=== PATIENT | female | born 1975 | race Caucasian/White ===

== ENCOUNTER 2017-04-16 21:08 | Emergency (ER) | payer OTHER ==
[2017-04-16 21:29] VITALS: BP 118/63
--- NOTE | 2017-04-16 21:45 | UC ---
Skin Complaint HPI - HPI Summary HPI Summary: 41 YEAR old female with foot complaint. has blister like sore on left lateral foot, reports that she fell down in a doorway 03/25/17. no further trauma. -pt also requesting test, is on the pill but has not had period since 02/2017, no other urinary complaints. [ End ] - History of Current Complaint Chief Complaint: UCSkin Time Seen by Provider: 04/16/17 21:38 Stated Complaint: OPEN SORE ON THE LEFT FOOT Hx Obtained From: Patient Hx Last Menstrual Period: 03/05/17 on BCP Onset/Duration: Sudden Onset Timing: Constant - Allergy/Home Medications Allergies/Adverse Reactions: Allergies Allergy/AdvReac Type Severity Reaction Status Date / Time No Known Allergies Allergy Verified 04/16/17 21:29 Home Medications: Home Medications Micronor Bcp 1 tab DAILY 04/16/17 [History Confirmed 04/16/17] Review of Systems Constitutional: Negative Skin: Other - ulcer left foot Eyes: Negative ENT: Negative Respiratory: Negative Cardiovascular: Negative Gastrointestinal: Negative Genitourinary: Negative Motor: Negative Neurovascular: Negative Musculoskeletal: Negative Neurological: Negative Psychological: Negative All Other Systems Reviewed And Are Negative: Yes PMH/Surg Hx/FS Hx/Imm Hx Previously Healthy: Yes - Surgical History Surgical History: None - Family History Known Family History: Positive: None - Social History Lives: With Family Alcohol Use: Rare Substance Use Type: None Smoking Status (MU): Light Every Day Tobacco Smoker Type: Cigarettes Amount Used/How Often: 1/2 - 1 ppd Length of Time of Smoking/Using Tobacco: 15 yrs Have You Smoked in the Last Year: Yes Cessation Counseling: Patient Advised to Stop - Immunization History Most Recent Influenza Vaccination: none Physical Exam Triage Information Reviewed: Yes Appearance: Well-Appearing, No Pain Distress, Well-Nourished Vital Signs: Initial Vital Signs Temp 99.5 F 04/16/17 21:24 Pulse 75 04/16/17 21:24 Resp 16 04/16/17 21:24 BP 118/63 04/16/17 21:24 Pulse Ox 100 04/16/17 21:24 Vital Signs Reviewed: Yes Eye Exam: Normal ENT Exam: Normal Dental Exam: Normal Neck exam: Normal Neck: Positive: 1 Respiratory Exam: Normal Cardiovascular Exam: Normal Musculoskeletal Exam: Normal Neurological Exam: Normal Psychological Exam: Normal Skin Exam: Normal Skin: Positive: Other - left lateral foot with round macerated ulcer 1x1 cm and erythema surrounding it another 1cm, some purulent drainage in the center. no fluctuance. no streaking. rest of skin normal . Course/Dx - Course Course Of Treatment: discussed wound care, stop smoking, if redness spreads then go to ED. - Diagnoses Provider Diagnoses: cellulitis of the left foot Discharge - Discharge Plan Condition: Good Disposition: HOME Prescriptions: Cephalexin CAP* [Keflex 500 CAP*] 500 mg PO TID #30 cap Patient Education Materials: Cellulitis (ED) Referrals: Caitlin Bowman MD [Primary Care Provider] - 4 Days
== END 2017-04-16 22:08 | disposition home or self-care (01) ==
LOC: UCCORT 21:08
DX: L03.116 Cellulitis of left lower limb (principal); X58.XXXA Exposure to other specified factors, initial encounter; Z32.02 Encounter for pregnancy test, result negative; Z71.6 Tobacco abuse counseling
CPT/HCPCS: 84702; 99202; G0463

== ENCOUNTER 2017-05-19 12:02 | Emergency (ER) | payer OTHER ==
[2017-05-19] MEDS ORDERED: NS 0.9% 1000 ML* 1,000 ML IV ONE (12:52)
[2017-05-19] MEDS ORDERED: Ketorolac INJ* 30 MG/ML 1 ML VIAL IV PUSH ONE (12:52)
[2017-05-19] MEDS ORDERED: cefTRIAXone VIAL(*) 1,000 MG in NS 0.9% 50 ML* 50 ML IVPB ONE (12:53)
[2017-05-19] MEDS ORDERED: cefTRIAXone VIAL(*) 1,000 MG VIAL ONE (12:58)
--- NOTE | 2017-05-19 12:58 | UC ---
Abdominal Pain Female HPI - HPI Summary HPI Summary: Since yesterday she has had Left flank pain just below the ribs. No radiation down the leg. It hurts more to take a deep breath in and to move in certain positions like rolling over in bed last night. She has had urinary frequency for the past three days and pain at the end of urination. No prior kidney stone. Sexually active and monogamous. She also had chills last night and today. - History of Current Complaint Chief Complaint: UCGU Stated Complaint: URINARY COMPLAINT,BACK PAIN Time Seen by Provider: 05/19/17 12:40 Hx Obtained From: Patient Hx Last Menstrual Period: 05/05/17 Onset/Duration: Gradual Onset, Lasting Days Timing: Constant Severity Initially: Severe Severity Currently: Severe Location: Other - Discrete and left mid flank.. Radiates: No Character: Aching Aggravating Factor(s): Movement, Deep Breaths Alleviating Factor(s): Position Associated Signs and Symptoms: Positive: Back Pain, Urinary Symptoms. Negative : Diaphoresis, Fever - She has had chills., Cough, Chest Pain, Dizzy, Constipation, Blood in Stool, Vaginal Bleeding, Vaginal Discharge, Vomiting, Diarrhea Allergies/Adverse Reactions: Allergies Allergy/AdvReac Type Severity Reaction Status Date / Time No Known Allergies Allergy Verified 05/19/17 12:22 PMH/Surg Hx/FS Hx/Imm Hx Previously Healthy: Yes - Surgical History Surgical History: None - Family History Known Family History: Positive: None, Other - No hx of stones in the family. - Social History Lives: With Family Alcohol Use: None Substance Use Type: None Smoking Status (MU): Heavy Every Day Tobacco Smoker Type: Cigarettes Amount Used/How Often: 1/2 - 1 ppd Length of Time of Smoking/Using Tobacco: 15 yrs Have You Smoked in the Last Year: Yes - Immunization History Most Recent Influenza Vaccination: none Review of Systems Genitourinary: Dysuria, Frequency All Other Systems Reviewed And Are Negative: Yes Physical Exam Triage Information Reviewed: Yes Appearance: Well-Nourished, Pain Distress - She is guarding her back and she does not want move he back. Vital Signs: Initial Vital Signs Temp 97.6 F 05/19/17 12:22 Pulse 83 05/19/17 12:22 Resp 24 05/19/17 12:22 BP 152/99 05/19/17 12:22 Pulse Ox 99 05/19/17 12:22 Vital Signs Reviewed: Yes Eye Exam: Normal Eyes: Positive: Conjunctiva Clear ENT: Positive: Normal ENT inspection Neck: Positive: Supple, Nontender, No Lymphadenopathy Respiratory: Positive: Chest non-tender, Lungs clear, Normal breath sounds, No respiratory distress, No accessory muscle use. Negative: Respiratory distress, Decreased breath sounds, Accessory muscle use, Crackles, Rhonchi, Stridor Cardiovascular: Positive: RRR, No Murmur. Negative: Pulses Normal, Brisk Capillary Refill Abdomen Description: Positive: Nontender, No Organomegaly, Soft. Negative: Distended, Guarding Musculoskeletal: Positive: Strength Intact, ROM Intact, No Edema Neurological: Positive: Alert, Muscle Tone Normal. Negative: Fatigued Psychological: Positive: Normal Response To Family, Age Appropriate Behavior, Abnormal Response To Family Skin: Negative: rashes Diagnostics - Radiology No standard instances Xray Interpretation: No Acute Changes Radiology Interpretation Completed By: Radiologist Abd Pain Female Course/Dx - Course Course Of Treatment: She is feeling better after toradol. CT does not show urologic complications. The differential is still pyelonephritis given her chills and urinary symptoms. We will place her on keflex and she will stop it in two days if urine culture is neg. We will also place her on naproxen and flexaril. This could also be muscle strain as it is worse withi deep breaths. There is no midline percussion tenderness and it is higher up than lumbar spine. She has no radiation down the legs. She has no saddle anesthesia. She does agree that should she get more symtpoms down the legs or saddle anesthesia that she should get an MRI in the Ed. she agrees. She says she has had spine problems in the past and this does not feel like prior spine disc complications. - Differential Dx/Diagnosis Differential Diagnosis: Abdominal Aortic Aneurysm, Appendicitis, Bowel Obstruction, Constipation, Diverticulitis, Gall Bladder Disease, Hepatitis, Irritable Bowel Syndrome, Ovarian Cyst, Pancreatitis, Pelvic Inflammatory Disease, Peptic Ulcer Disease, Pneumonia, , Renal Colic, Urinary Tract Infection Provider Diagnoses: flank pain. possible pyelonephritis. possible muscle strain. Discharge - Discharge Plan Condition: Good Disposition: HOME Prescriptions: Cephalexin CAP* [Keflex CAP*] 500 mg PO TID #30 cap Cyclobenzaprine TAB* [Flexeril 10 MG TAB*] 10 mg PO BEDTIME PRN #10 tab PRN Reason: Pain Naproxen TAB* [Naprosyn 250 mg TAB*] 500 mg PO Q8H PRN #21 tab PRN Reason: Pain Patient Education Materials: Flank Pain (ED) Referrals: Barbi Adrian NP [Primary Care Provider] - 1 Day Additional Instructions: Return to an ED immediately for any worsening symptoms.
--- NOTE | 2017-05-19 13:21 | RAD ---
Indication: Left flank pain. CT of the abdomen and pelvis was performed without oral or IV contrast administration. Coronal and sagittal reconstructed images were obtained. The lung bases demonstrate no pleural fluid, nodules or masses. Heart is of normal size without evidence of pericardial effusion. Lung bases demonstrate no pleural fluid, nodules or masses. Heart is of normal size without evidence of pericardial effusion. Liver is normal in size. No definite intrahepatic duct dilatation or focal lesions are noted although evaluation is limited due to lack of IV contrast. Spleen is normal in size. No adrenal lesions are noted. Pancreas demonstrates no mass or pancreatic ductal location. Common duct is not dilated. The gallbladder demonstrates suggestion of high density material in the dependent portion. Correlation with ultrasound may BE considered to exclude cholelithiasis. No definite hydronephrosis is noted. No ureteral calculi is identified. The retroperitoneal lymphadenopathy is noted. No dilated loops of bowel are noted. Colon is filled with stool. The bony structures demonstrates spondylolysis of L5. No definite spondylolisthesis is noted. IMPRESSION: No definite evidence of obstructive uropathy is noted. 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
[2017-05-19 14:40] VITALS: BP 104/52
[2017-05-19 19:21] LABS: Hematocrit 42 % (35-47); Hemoglobin 14.4 g/dl (12.0-16.0); Mean Corpuscular HGB Conc 34 g/dl (31-36); Mean Corpuscular Hemoglobin 33 pg (27-31); Mean Corpuscular Volume 99 fL (80-97); Mean Platelet Volume 10 um3 (7.4-10.4); Red Cell Distribution Width 13 % (10.5-15); White Blood Count 13.1 10^3/ul (3.5-10.8)
[2017-05-19 19:40] LABS: Albumin 4.6 g/dL (3.2-5.2); Calcium 9.5 mg/dL (8.6-10.3); EGFR African American 99.8 (>60); EGFR Non-African American 77.6 (>60); Globulin 2.6 g/dL (2-4); Potassium 4.5 mmol/L (3.5-5.0); Total Bilirubin 0.6 mg/dL (0.2-1.0); Total Protein 7.2 g/dL (6.4-8.9)
--- NOTE | 2017-05-23 07:17 | UC ---
Progress - Progress Note Progress Note: +UTI, on keflex. sens to cefazolin and everything else except ampicillin.
== END 2017-05-19 14:41 | disposition home or self-care (01) ==
LOC: UCCORT 12:02
DX: M54.5 Low back pain (principal); M47.816 Spondylosis without myelopathy or radiculopathy, lumbar region; R30.0 Dysuria; R35.0 Frequency of micturition; Z32.02 Encounter for pregnancy test, result negative; F17.210 Nicotine dependence, cigarettes, uncomplicated
CPT/HCPCS: 36415; 74176; 80053; 81003; 84702; 85025; 87077; 87086; 87186; 96361; 96365; 96375; 99212; G0463; J0696; J1885

== ENCOUNTER 2017-11-09 09:37 | Emergency (ER) | payer OTHER ==
[2017-11-09 10:04] VITALS: BP 119/78
[2017-11-09] MEDS ORDERED: Ibuprofen ADULT LIQ* 600 MG/30 ML UDC PO ONE (10:14)
--- NOTE | 2017-11-09 10:24 | UC ---
Lower Extremity/Ankle HPI - HPI Summary HPI Summary: pt jammed the top of her L foot on a bed frame . c/o ongoing pain, swelling and bruising to top of L foot. a little more sore now. no fever - History of Current Complaint Chief Complaint: UCLowerExtremity Stated Complaint: LEFT FOOT PAIN Time Seen by Provider: 11/09/17 10:09 Hx Obtained From: Patient Hx Last Menstrual Period: 11/06/17 Onset/Duration: Sudden Onset Pain Intensity: 5 Aggravating Factor(s): Standing, Ambulation Alleviating Factor(s): Rest Able to Bear Weight: Yes - Risk Factors Septic Arthritis Risk Factor: Negative - Allergies/Home Medications Allergies/Adverse Reactions: Allergies Allergy/AdvReac Type Severity Reaction Status Date / Time No Known Allergies Allergy Verified 11/09/17 10:00 Home Medications: Home Medications Ibuprofen TAB* [Motrin TAB* 800 MG] 800 mg PO ONCE 11/09/17 [History Confirmed 11/09/17] PMH/Surg Hx/FS Hx/Imm Hx Previously Healthy: Yes - Surgical History Surgical History: None - Family History Known Family History: Positive: None, Other - No hx of stones in the family. - Social History Lives: With Family Alcohol Use: Rare Substance Use Type: None Smoking Status (MU): Heavy Every Day Tobacco Smoker Type: Cigarettes Amount Used/How Often: 1/2 - 1 ppd Length of Time of Smoking/Using Tobacco: 15 yrs Have You Smoked in the Last Year: Yes - Immunization History Most Recent Influenza Vaccination: none Vaccination Up to Date: Yes Review of Systems Constitutional: Negative Skin: Negative Eyes: Negative ENT: Negative Respiratory: Negative Cardiovascular: Negative Gastrointestinal: Negative Genitourinary: Negative Motor: Negative Neurovascular: Negative Musculoskeletal: Other: - pain, swelling L dorsal foot Neurological: Negative Psychological: Negative Is Patient Immunocompromised?: No All Other Systems Reviewed And Are Negative: Yes Physical Exam Triage Information Reviewed: Yes Appearance: Well-Appearing Vital Signs: Initial Vital Signs Temp 98.9 F 11/09/17 09:57 Pulse 78 11/09/17 09:57 Resp 15 11/09/17 09:57 BP 119/78 11/09/17 09:57 Pulse Ox 99 11/09/17 09:57 Eyes: Positive: Conjunctiva Clear ENT: Positive: Normal ENT inspection Neck: Positive: Supple, Nontender, No Lymphadenopathy Respiratory: Positive: Lungs clear, Normal breath sounds Cardiovascular: Positive: RRR, No Murmur Abdomen Description: Positive: Nontender, No Organomegaly, Soft Bowel Sounds: Positive: Present Musculoskeletal: Positive: Other: - L dorsal foot with mild swelling, brusing and tenderness. Gross s/v/m is intact, No erythema or warmth. rest of LLE is atraumatic. Neurological: Positive: Alert Psychological: Positive: Age Appropriate Behavior Skin Exam: Normal Diagnostics - Radiology No standard instances Xray Interpretation: No Acute Changes Radiology Interpretation Completed By: Radiologist Lower Extremity Course/Dx - Course Course Of Treatment: no concern for infection. no fx or dislocation of xray - Differential Dx/Diagnosis Provider Diagnoses: Contusion left dorsal foot Discharge - Sign-Out/Discharge Documenting (check all that apply): Discharge/Admit/Transfer - Discharge Plan Condition: Stable Disposition: HOME Patient Education Materials: Foot Contusion (ED) Referrals: Barbi Adrian NP [Primary Care Provider] - 5 Days - Billing Disposition and Condition Condition: STABLE Disposition: HOME
--- NOTE | 2017-11-09 10:37 | RAD ---
HISTORY: Anterior left foot pain, subacute trauma COMPARISONS: None VIEWS: 3, Frontal, lateral, and oblique views of the left foot FINDINGS: BONE DENSITY: Normal. BONES: There is no displaced fracture. There are small posterior calcaneal enthesophytes. JOINTS: There is no arthropathy. ALIGNMENT: There is no dislocation. SOFT TISSUES: Unremarkable. OTHER FINDINGS: None. IMPRESSION: NO ACUTE OSSEOUS INJURY. IF SYMPTOMS PERSIST, RECOMMEND REPEAT IMAGING.
== END 2017-11-09 10:57 | disposition home or self-care (01) ==
LOC: UCCORT 09:37
DX: S90.32XA Contusion of left foot, initial encounter (principal); W22.03XA Walked into furniture, initial encounter; Y93.9 Activity, unspecified; Y92.003 Bedroom of unspecified non-institutional (private) residence as the place of occurrence of the external cause
CPT/HCPCS: 99213; A9270-GY; G0463

== ENCOUNTER 2018-08-11 13:20 | Emergency (ER) | payer OTHER ==
[2018-08-11 13:43] VITALS: BP 106/65
--- NOTE | 2018-08-11 13:52 | UC ---
Hand/Wrist HPI - HPI Summary HPI Summary: left wrist pain x 5 days sudden onset pain of her left wrist as she was pushing against her bed pain is sharp 6 out of 10 , no radiation , worse with movements, better with rest - History Of Current Complaint Stated Complaint: LEFT WRIST COMPLAINT Time Seen by Provider: 08/11/18 13:28 Hx Obtained From: Patient Hx Last Menstrual Period: 07/14/18 ?: No Onset/Duration: Sudden Onset, Lasting Days - 5, Still Present Severity Initially: Moderate Severity Currently: Moderate Pain Intensity: 5 Pain Scale Used: 0-10 Numeric Character Of Pain: Sharp Aggravating Factor(s): Movement, Lifting, Flexion, Extension Alleviating Factor(s): Rest, Ice Associated Signs And Symptoms: Positive: Weakness, Numbness/Tingling. Negative : Swelling, Redness, Bruising, Fever, Other - Allergies/Home Medications Allergies/Adverse Reactions: Allergies Allergy/AdvReac Type Severity Reaction Status Date / Time morphine Allergy Severe Vomiting Verified 08/11/18 13:38 Home Medications: Home Medications Norethindrone [Ria-Be] 1 tab DAILY 08/11/18 [History Confirmed 08/11/18] PMH/Surg Hx/FS Hx/Imm Hx - Additional Past Medical History Additional PMH: cts - Surgical History Surgical History: None - Family History Known Family History: Positive: None, Other - No hx of stones in the family. Negative: Diabetes - Social History Alcohol Use: None Substance Use Type: None Smoking Status (MU): Heavy Every Day Tobacco Smoker Type: Cigarettes Amount Used/How Often: 1/2 PPD Length of Time of Smoking/Using Tobacco: 15 yrs Have You Smoked in the Last Year: Yes - Immunization History Most Recent Influenza Vaccination: none Vaccination Up to Date: Yes Review of Systems All Other Systems Reviewed And Are Negative: Yes Constitutional: Positive: Negative Skin: Positive: Negative Eyes: Positive: Negative ENT: Positive: Negative Is Patient Immunocompromised?: No Physical Exam Triage Information Reviewed: Yes Appearance: Well-Appearing, No Pain Distress, Well-Nourished Vital Signs: Initial Vital Signs Temp 98.9 F 08/11/18 13:38 Pulse 65 08/11/18 13:38 Resp 16 08/11/18 13:38 BP 106/65 08/11/18 13:38 Pulse Ox 97 08/11/18 13:38 Vital Signs Reviewed: Yes Eye Exam: Normal Eyes: Positive: Conjunctiva Clear ENT: Positive: Normal ENT inspection, Hearing grossly normal, Pharynx normal Neck: Positive: Supple, Nontender, No Lymphadenopathy Respiratory: Positive: Chest non-tender, Lungs clear, Normal breath sounds Cardiovascular: Positive: RRR, No Murmur, Pulses Normal Musculoskeletal: Positive: Other: - left wrist: no swelling, + diffuse tenderness, more tenderness top of the median nerve pain with flexion and extension , good dtrength , + tinel Hand/Wrist Course/Dx - Differential Dx/Diagnosis Provider Diagnosis: Left wrist sprain Discharge - Sign-Out/Discharge Documenting (check all that apply): Patient Departure All imaging exams completed and their final reports reviewed: No Studies - Discharge Plan Condition: Stable Disposition: HOME Patient Education Materials: Wrist Sprain (ED) Referrals: Barbi Adrian NP [Primary Care Provider] - 7 Days Additional Instructions: no need for xray sprain / strain of left wrist with pinched nerve / carpal tunnel syndrome cont. with rest, ice, prednisone x 5 days may use your wrist brace as needed - Billing Disposition and Condition Condition: STABLE Disposition: Home
== END 2018-08-11 13:45 | disposition home or self-care (01) ==
LOC: UCCORT 13:20
DX: S63.502A Unspecified sprain of left wrist, initial encounter (principal); F17.210 Nicotine dependence, cigarettes, uncomplicated; Z88.5 Allergy status to narcotic agent; X50.9XXA Other and unspecified overexertion or strenuous movements or postures, initial encounter; Y92.9 Unspecified place or not applicable
CPT/HCPCS: 99212; G0463